=== PATIENT | female | born 2005 | race Caucasian/White ===

== ENCOUNTER 2023-05-14 15:26 | Emergency (ER) | payer BC, SELFPAY ==
[2023-05-14 15:32] VITALS: BP 103/63; PULSE 59; RESP 18; TEMP 36.4; O2SAT 100; BMI 18.1
--- NOTE | 2023-05-14 16:28 | ED_ITS ---
HPI - General Adult General Chief complaint: Chest Pain Stated complaint: chest pain Time Seen by Provider: 05/14/23 15:38 History of Present Illness HPI narrative: This 17-year-old female comes in from urgent care because of upper epigastric abdominal pain and some chest discomfort that began yesterday. 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 She did run yesterday and felt fine during that time. Later in the evening she began to have some discomfort in her upper abdomen. She states that this pain was worse when standing up straight. She found some relief when she was and stretching the muscles in this area. She slept well last night and then this morning again was having discomfort in her upper abdomen and also somewhat in her chest. This pain again was reproducible with palpating in this area and with certain movements. She does not report any nausea, vomiting, lightheadedness, shortness of breath, or diaphoresis. She states that her father has idiopathic hypertrophic cardiomyopathy but she has been tested for this and was negative for some kind of genetic connection to her father in this regard. Related Data Home Medications Medication Instructions Recorded Confirmed multivitamin with iron (Daily 1 tab PO QDAY 05/14/23 05/14/23 Multiple Vitamins with Iron tablet) Previous Rx's Medication Instructions Recorded ketorolac 10 mg tablet 10 mg PO Q8H 5 days #15 tabs 05/14/23 Allergies Allergy/AdvReac Type Severity Reaction Status Date / Time No Known Drug Allergies Allergy Verified 05/14/23 15:36 Review of Systems Status of ROS: Reports: 10 or more systems reviewed and unremarkable except as noted in History and below Narrative: Constitutional: No fevers, no weight gain or loss. Eyes: No discharge. No vision changes. HENT: No congestion, no sore throat, no ear pain. Cardiovascular: No chest pain, no palpitations. Respiratory: No shortness of breath, no wheezes, no cough. Gastrointestinal: No vomiting, no diarrhea. Upper abdominal pain. Genitourinary: No dysuria, no hematuria. Musculoskeletal: Normal range of motion. Skin: No rashes, no pruritis. Neurological: No dizziness, weakness, sensory change, speech change. Endo/Heme/Allergies: No bruising or bleeding. No polydipsia. Pysch: no suicidality, no anxiety, no insomnia. All other systems reviewed and are negative. PFSH PFSH Social History Smoking Status: Never smoker Do you use any of these nicotine containing products: None Second hand tobacco smoke exposure: No How often do you have a drink containing alcohol: never AUDIT-C Alcohol total score: 0 Non-prescribed substance use: denies use Exam Narrative: Exam Narrative: Constitutional: Well-developed, well-nourished, no acute distress. HEENT: Normocephalic, atraumatic. Neck: Normal range of motion. Nontender. Supple. Heart: Regular. No murmurs. Normal rate. Intact distal pulses. Lungs: Clear to auscultation. No chest discomfort. No wheezes, rhonchi, or rales. Abdomen: Normal bowel sounds. Mild tenderness in the upper epigastric region reproducible when palpating in this area. No rebound tenderness. Genitalia: Deferred. Back: No midline tenderness. Normal range of motion. Extremities: Normal range of motion. No injury. Skin: Intact. No rash. Warm. No erythema or pallor. Neurologic: No altered sensation. No weakness. Alert and oriented. Psychiatric: No suicidality. No anxiety or depression. No insomnia. Nursing notes and vitals signs are reviewed. Const: Vital Signs, click to edit/add: Vital Signs - 24 hr 05/14/23 15:32 Temperature 97.5 F L Pulse Rate [Pulse Oximeter] 59 L Respiratory Rate 18 Blood Pressure [Ri ght Upper Arm] 103/63 Pulse Oximetry 100 Oxygen Delivery Me thod Room Air Course Vital Signs Vital signs: Initial Vital Signs Temperature 97.5 F L 05/14/23 15:32 Temperature Source Temporal Artery Scan 05/14/23 15:32 Pulse Rate 59 L 05/14/23 15:32 Respiratory Rate 18 05/14/23 15:32 Blood Pressure 103/63 05/14/23 15:32 Blood Pressure Mean 76 05/14/23 15:32 Blood Pressure Position Sitting 05/14/23 15:32 Pulse Oximetry 100 05/14/23 15:32 Oxygen Delivery Method Room Air 05/14/23 15:32 Vital Signs Temperature 97.5 F L 05/14/23 15:32 Pulse Rate 59 L 05/14/23 15:32 Respiratory Rate 18 05/14/23 15:32 Blood Pressure 103/63 05/14/23 15:32 Pulse Oximetry 100 05/14/23 15:32 Oxygen Delivery Method Room Air 05/14/23 15:32 Temperature 97.5 F L 05/14/23 15:32 Pulse Rate 59 L 05/14/23 15:32 Respiratory Rate 18 05/14/23 15:32 Blood Pressure 103/63 05/14/23 15:32 Pulse Oximetry 100 05/14/23 15:32 Oxygen Delivery Method Room Air 05/14/23 15:32 Medical Decision Making MDM Narrative Medical decision making narrative: This patient comes in with upper epigastric and lower chest pain as described above. This pain is reproducible when palpating in these areas and when standing up and stretching her muscles in her upper abdomen she states that the pain is worse. 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 She is running lots of miles most every day. She has good exercise tolerance obviously. I did use bedside ultrasound and saw normal anatomy across the upper abdomen and normal findings looking also at her heart. This was reassuring enough for the patient. It seems that her symptoms are more musculoskeletal related as they are reproducible with palpating and with stretching these muscles. The patient is encouraged to use medicine such as Prilosec for possible benefit of acid reduction. I also provided a prescription for Toradol. Discharge Plan Discharge Clinical Impression: Anterior chest wall pain, Abdominal pain Patient Disposition: Home, Self-Care Condition: Stable Additional Instructions: Take Prilosec as needed and directed. Use Toradol also as needed and directed for pain relief. Activity as tolerated. Follow up with MD return if worsening. Prescriptions: New ketorolac 10 mg tablet 10 mg PO Q8H 5 Days Qty: 15 0RF No Action multivitamin with iron [Daily Multiple Vitamins/Iron] Tablet 1 tab PO QDAY Follow Up/Referrals: Provider,Not a Local [Primary Care Provider] - Stand Alone Forms: [employer] Info Instructions Procedures Ultrasound Biliary exam #1: Anatomical areas examined: gallbladder, long and short axis Indications: RUQ/epigastric pain Exam type: limited abdominal ultrasound; RUQ Impression: normal exam
== END 2023-05-14 16:54 | disposition home or self-care (01) ==
PROVIDERS: Emergency Provider Emergency Medicine Emergency Medical Services
DX: R07.89 Other chest pain (principal); R10.9 Unspecified abdominal pain
CPT/HCPCS: 76705; 99284

== ENCOUNTER 2024-02-17 23:38 | Emergency (ER) | payer BC, SELFPAY ==
[2024-02-17 23:45] VITALS: BP 103/68; PULSE 87; RESP 20; TEMP 36.8; O2SAT 99; BMI 18.8
--- NOTE | 2024-02-18 00:23 | ED_ITS ---
HPI - Nausea/Vomiting/Diarrhea General Date Seen: 02/18/24 Chief complaint: Nausea/Vomiting Stated complaint: vomiting, diarrhea Time Seen by Provider: 02/17/24 23:51 Source: patient, RN notes reviewed and old records reviewed Mode of arrival: ambulatory Limitations: no limitations History of Present Illness HPI Narrative: Patient is a 18-year-old female who presents here with 2 hours of vomiting, and loose stools. She has vomited approximately 6 times, not blood, and denies coffee-grounds. She has also had 2-3 loose stools during this time. Also no blood within them. No other contacts are sick. She feels weak. She did not take anything for this. Denies alcohol use. 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 And just return from [facility] a week ago. Denies previous problems the denies drug use. No history of previous abdominal surgeries her last normal menstrual period was last week and she denies being . Denies dysuria frequency of urine. Any back pain when asked if she has abdominal pain she says all over. Only medication she takes is iron supplements, she presents with a friend, goes to college here in [place]. elicited complaint: nausea Related Data Home Medications ?Medication ?Instructions ?Recorded ?Confirmed multivitamin with iron (Daily 1 tab PO QDAY 05/14/23 02/17/24 Multiple Vitamins with Iron tablet) Previous Rx's ?Medication ?Instructions ?Recorded ondansetron 4 mg disintegrating 4 mg PO BID-TID PRN nausea and 02/18/24 tablet vomiting 4 days #10 tabs Allergies Allergy/AdvReac Type Severity Reaction Status Date / Time No Known Drug Allergies Allergy Verified 02/17/24 23:52 Review of Systems Status of ROS: Reports: 10 or more systems reviewed and unremarkable except as noted in History and below [facility] Medical History Anemia ?D64.9 - Anemia, unspecified (ICD-10) Depression ?F32.A - Depression, unspecified (ICD-10) Anxiety ?F41.9 - Anxiety disorder, unspecified (ICD-10) Surgical History No significant past surgical history Social History Smoking Status: Never smoker Do you use any of these nicotine containing products: None Second hand tobacco smoke exposure: No How often do you have a drink containing alcohol: never AUDIT-C Alcohol total score: 0 Non-prescribed substance use: denies use Exam Narrative: Exam Narrative: On examination in room 5 she appears to be in no apparent distress, able to speak to me normally, her vital signs are normal, she appears nontoxic. Pupils equal round reactive to light there is no scleral icterus redness or TMs are normal oropharynx, shows no significant redness, hydration status maybe a little bit dry, there is no meningismus, follows commands normally, cranial nerves 3-12 are normal, chest is good air entry bilaterally with no wheezing crackles noted, easy respirations. Heart sounds are normal, no clicks murmurs or gallops her abdomen is scaphoid, she has tenderness on the right side. There is no peritoneal signs, no CVA tenderness is noted, skin reveals no petechiae rashes she moves all extremities independently and well. Const: Vital Signs, click to edit/add: Vital Signs - 24 hr 02/17/24 23:45 02/18/24 00:36 02/18/24 01:13 Temperature 98.2 F 98.2 F Pulse Rate [Right Pulse Oximeter] 87 Respiratory Rate 20 Blood Pressure [Ri ght Upper Arm] 103/68 Pulse Oximetry 99 99 Oxygen Delivery Me thod Room Air 02/18/24 01:16 02/18/24 02:14 02/18/24 02:16 Temperature 98.2 F 98.2 F 98.2 F Pulse Rate [Right Pulse Oximeter] 85 85 Respiratory Rate 20 20 Blood Pressure [Ri ght Upper Arm] 110/70 122/77 Pulse Oximetry 99 99 Oxygen Delivery Me thod Room Air Room Air 02/18/24 02:19 Temperature 98.2 F Pulse Rate [Right Pulse Oximeter] 85 Respiratory Rate 20 Blood Pressure [Ri ght Upper Arm] 122/77 Pulse Oximetry Oxygen Delivery Me thod Documenting provider has reviewed patient's vital signs: yes Course Course ED Course: Interestingly the friend who brought her here is now vomiting in the bathroom of the emergency room. Likelihood that this is either food-borne, or a infectious etiology is higher. Reevaluation(s) Time of Reevaluation #1: 01:10 Reevaluation #1: Patient reports that she is feeling a lot better at this point, asking for water, recheck of her abdomen shows she really does not have any tenderness at all on deep palpation, she is in agreement with this. We will give her 2 L of fluids I need to rule out a UTI here. She understands this. I think there is high likelihood that she can go home tonight if at all looks good. With some oral Zofran. Time of Reevaluation #2: 02:21 Reevaluation #2: Telma feels good, she has absolutely no abdominal pain, has not vomited. Received 2 L of fluids. I went over with her her lab results which showed the elevated hemoglobin elevated calcium and elevated protein levels I do recommend that she follows up within the next few weeks to get these recheck. To ensure there is nothing going on I suspect that they may be from just her dehydration. We went over the worsening situation when she should be re seen Vital Signs Vital signs: Initial Vital Signs Temperature 98.2 F 02/17/24 23:45 Temperature Source Temporal Artery Scan 02/17/24 23:45 Pulse Rate 87 02/17/24 23:45 Respiratory Rate 20 02/17/24 23:45 Blood Pressure 103/68 02/17/24 23:45 Blood Pressure Mean 79 02/17/24 23:45 Blood Pressure Position Sitting 02/17/24 23:45 Pulse Oximetry 99 02/17/24 23:45 Oxygen Delivery Method Room Air 02/17/24 23:45 Vital Signs Temperature 98.2 F 02/17/24 23:45 Pulse Rate 87 02/17/24 23:45 Respiratory Rate 20 02/17/24 23:45 Blood Pressure 103/68 02/17/24 23:45 Pulse Oximetry 99 02/17/24 23:45 Oxygen Delivery Method Room Air 02/17/24 23:45 Temperature 98.2 F 02/18/24 02:19 Pulse Rate 85 02/18/24 02:19 Respiratory Rate 20 02/18/24 02:19 Blood Pressure 122/77 02/18/24 02:19 Pulse Oximetry 99 02/18/24 02:16 Oxygen Delivery Method Room Air 02/18/24 02:16 Medications Administered Medications: Discontinued Medications Generic Name Dose Route Start Last Admin Trade Name Freq PRN Reason Stop Dose Admin Sodium Chloride 1,000 mls @ 1,000 mls/hr 02/18/24 00:15 02/18/24 01:15 0.9 % Sodium Chloride 1000 Ml IV 02/18/24 01:14 Infused .Q1H MARY KATE Infusion Sodium Chloride 1,000 mls @ 1,000 mls/hr 02/18/24 01:15 02/18/24 02:13 0.9 % Sodium Chloride 1000 Ml IV 02/18/24 02:14 Infused .Q1H MARY KATE Infusion Ketorolac Tromethamine 30 mg 02/18/24 00:28 02/18/24 01:13 Ketorolac 30 Mg/Ml Inj IVP 02/18/24 00:29 30 mg ONCE ONE Administration Ondansetron HCl 4 mg 02/18/24 00:12 02/18/24 00:27 Ondansetron 2 Mg/Ml Inj IVP 02/18/24 00:13 4 mg ONCE ONE Administration MDM - Nausea/Vomiting/Diarrhea MDM Narrative Medical decision making narrative: During the evaluation of this patient I considered multiple differential diagnosis including life-threatening differentials which are appendicitis, aortic aneurysm, mesenteric ischemia, bowel perforation, ectopic , volvulus and bowel obstruction, other differential diagnosis include but are not limited to inflammatory bowel disease, cholecystitis, pancreatitis, hepatitis, gastritis, GERD, diverticulitis, peptic ulcer disease, pyelonephritis/UTI, renal colic/stone, pelvic inflammatory disease, cervicitis, endometritis, intrauterine , dysfunctional uterine bleeding, ovarian cyst/torsion, spontaneous as well as other etiologies I discussed with her that we will try some fluids, some Zofran, he can use some pain medication also. I recommend laboratory tests, and likely a CT scan after the lab test Lab Data Labs: Lab Results 02/18/24 02/18/24 02/18/24 Range/Units 00:12 00:32 01:30 WBC 8.24 (4.50-11.00) K/uL RBC 5.77 H (4.00-5.20) m/uL Hgb 17.2 H (12.0-16.0) gm/dL Hct 52.6 H (33.0-51.0) % MCV 91 (80-100) fL MCH 30 (26-34) pg MCHC 33 (32-36) gm/dL RDW Coeff of Neftali 13.3 (11.5-15.5) % Plt Count 251 (140-440) K/uL Neut % (Auto) 90.9 H (42.0-72.0) % Lymph % (Auto) 5.1 L (20-44) % [place] % (Auto) 3.6 (0.0-11.0) % Eos % (Auto) 0.1 (0.0-7.0) % Baso % (Auto) 0.1 (0.0-3.0) % Neut # (Auto) 7.50 H (1.7-7.0) K/uL Lymph # (Auto) 0.40 L (0.90-2.90) K/uL [place] # (Auto) 0.30 (0.00-0.90) K/UL Eos # (Auto) 0.01 (0.00-0.50) K/uL Baso # (Auto) 0.01 (0.00-0.30) K/uL Abs Immat Gran (auto) 0.02 (0.00-0.30) K/uL Imm/Tot Granulo (auto) 0.2 % Sodium 141 (135-149) mmol/L Potassium 4.3 (3.6-5.1) mmol/L Chloride 105 (96-114) mmol/L Carbon Dioxide 19 L (20-32) mmol/L Anion Gap 17 H (7-15) mEq/L BUN 21 (5-24) mg/dL Creatinine 0.8 (0.5-1.5) mg/dL Estimated Creat Clear 108.44 Estimated GFR 108 ml/min Glucose 131 H (60-115) mg/dL Calcium 11.0 H (8.4-10.6) mg/dL Total Bilirubin 1.5 (0.1-1.5) mg/dL Direct Bilirubin 0.3 (0.0-0.5) mg/dL AST 36 H (12-35) U/L ALT 33 (4-35) U/L Alkaline Phosphatase 79 (40-150) U/L C-Reactive Protein < 0.5 L (0.5-1.0) mg/dL Total Protein 9.7 H (6.0-8.3) g/dL Albumin 5.8 H (3.3-5.0) g/dL Lipase 104 (23-300) U/L HCG, Qual Negative (Negative) Urine Color Yellow (Yellow) Urine Appearance Cloudy A (Clear) Urine pH 5.5 (5.0-8.5) Ur Specific [place] >= 1.030 (1.000-1.030) Urine Protein 1+ A (Negative) Urine Glucose (UA) Negative (Negative) Urine Ketones Trace A (Negative) Urine Blood Negative (Negative) Urine Nitrite Negative (Negative) Urine Bilirubin Negative (Negative) Urine Urobilinogen 0.2 (0.2-1.0) Ur Leukocyte Esterase Negative (Negative) Urine RBC 0-2 (0-2) Urine WBC 0-2 (0-5) Ur Squamous Epith Cells Moderate A (None-Few) Urine Bacteria Few A (None) Urine Opiates Screen Negative (Negative) Ur Oxycodone Screen Negative (Negative) Urine Methadone Screen Negative (Negative) Ur Barbiturates Screen Negative (Negative) U Tricyclic Antidepress Negative (Negative) Ur Phencyclidine Scrn Negative (Negative) Ur Amphetamines Screen Negative (Negative) U Methamphetamines Scrn Negative (Negative) U Benzodiazepines Scrn Negative (Negative) Urine Cocaine Screen Negative (Negative) U Marijuana (THC) Screen Negative (Negative) Ur Drug Screen Comment See Note Ethyl Alcohol < 0.01 L (0.01-0.03) % Lab Acknowledgement Test Added Discharge Plan Discharge Clinical Impression: Vomiting, Gastroenteritis, Diarrhea, Hypercalcemia, Elevated serum protein level, Elevated hemoglobin Patient Disposition: Home, Self-Care Condition: Improved Instructions: Acute Nausea and Vomiting (DC), Acute Diarrhea (ED), Acute Abdominal Pain (DC) Additional Instructions: Home, rest, use of Zofran anti nausea medicine as needed. I do recommend you follow-up with primary care your regular physician to get a recheck of your laboratory work copies will be given to you. , I suspect that some of this was due to the fact that your does dehydrated but she do have elevated protein levels elevated hemoglobin. Return here if your abdominal pain comes back, you start vomit out of control. Inability keep oral fluids down. I suspect given the fact her friend got sick that this is likely infectious in some way shape or form. Activity Level: Light activity Prescriptions: New ondansetron 4 mg tablet,disintegrating 4 mg PO BID-TID PRN (Reason: nausea and vomiting) 4 Days Qty: 10 0RF No Action multivitamin with iron [Daily Multiple Vitamins/Iron] Tablet 1 tab PO QDAY Follow Up/Referrals: Provider,Not a Local [Primary Care Provider] - Stand Alone Forms: [employer] Info Instructions
[2024-02-18 00:26] LABS: Basophils Absolute Auto 0.01 K/uL (0.00-0.30); Basophils Percent Auto 0.1 % (0.0-3.0); Eosinophils Absolute Auto 0.01 K/uL (0.00-0.50); Eosinophils Percent Auto 0.1 % (0.0-7.0); Hematocrit 52.6 % (33.0-51.0); Hemoglobin* 17.2 gm/dL (12.0-16.0); Immature Granulocytes Abs Auto 0.02 K/uL (0.00-0.30); Immature Granulocytes Pct Auto 0.2 %; Lymphocytes Percent Auto 5.1 % (20-44); Mean Corpuscular HGB Conc 33 gm/dL (32-36); Mean Corpuscular Hemoglobin 30 pg (26-34); Mean Corpuscular Volume 91 fL (80-100); Monocytes Percent Auto 3.6 % (0.0-11.0); Neutrophils Percent Auto 90.9 % (42.0-72.0); Platelet Count* 251 K/uL (140-440); RDW Coefficient of Variation % 13.3 % (11.5-15.5); Red Blood Count 5.77 m/uL (4.00-5.20); White Blood Count* 8.24 K/uL (4.50-11.00)
[2024-02-18] MEDS: 0.9 % SODIUM CHLORIDE 1000 ml 1,000 ML IV ×2 (00:27→01:11)
[2024-02-18] MEDS: ONDANSETRON 2 MG/ML inj 4 MG IVP (00:27)
[2024-02-18 00:30] LABS: Slide Review Reflex No
[2024-02-18 00:36] VITALS: O2SAT 99
[2024-02-18 00:49] LABS: HCG Qualitative Serum* Negative (Negative)
[2024-02-18 00:50] LABS: Albumin* 5.8 g/dL (3.3-5.0); Chloride* 105 mmol/L (96-114); Sodium* 141 mmol/L (135-149)
[2024-02-18 00:53] LABS: Anion Gap 17 mEq/L (7-15); Aspartate Amino Transferase* 36 U/L (12-35); Bilirubin Direct* 0.3 mg/dL (0.0-0.5); Bilirubin Total* 1.5 mg/dL (0.1-1.5); Carbon Dioxide* 19 mmol/L (20-32); Creatinine* 0.8 mg/dL (0.5-1.5); Est. Creatinine Clearance* 108.44; Estimated Glomerular Filt Rate 108 ml/min; Ethanol* < 0.01 % (0.01-0.03); Potassium* 4.3 mmol/L (3.6-5.1); Total Protein* 9.7 g/dL (6.0-8.3)
[2024-02-18 00:54] LABS: Alanine Aminotransferase* 33 U/L (4-35); Alkaline Phosphatase* 79 U/L (40-150); Blood Urea Nitrogen* 21 mg/dL (5-24); Glucose* 131 mg/dL (60-115); Lipase* 104 U/L (23-300)
[2024-02-18 01:03] LABS: C Reactive Protein* < 0.5 mg/dL (0.5-1.0)
[2024-02-18 01:13] VITALS: TEMP 36.8
[2024-02-18] MEDS: KETOROLAC 30 MG/ML inj IVP (01:13)
[2024-02-18 01:16] VITALS: BP 110/70; PULSE 85; RESP 20; TEMP 36.8; O2SAT 99
[2024-02-18 01:38] LABS: Appearance Urine Cloudy (Clear); Bilirubin Urine Negative (Negative); Blood Urine Negative (Negative); Color Urine Yellow (Yellow); Glucose Urine Negative (Negative); Ketones Urine Trace (Negative); Leukocyte Esterase Urine Negative (Negative); Nitrite Urine Negative (Negative); Protein Urine 1+ (Negative); Specific Gravity Urine >= 1.030 (1.000-1.030); Urobilinogen Urine 0.2 (0.2-1.0); pH Urine 5.5 (5.0-8.5)
[2024-02-18 01:46] LABS: Amphetamine Screen Urine Negative (Negative); Barbiturate Screen Urine Negative (Negative); Benzodiazepines Screen Urine Negative (Negative); Cannabinoid Screen Urine Negative (Negative); Cocaine Screen Urine Negative (Negative); Methadone Screen Urine Negative (Negative); Methamphetamines Screen Urine Negative (Negative); Opiate Screen Urine Negative (Negative); Oxycodone Screen Urine Negative (Negative); Phencyclidine Screen Urine Negative (Negative); Tricyclic Antidepressant Urine Negative (Negative)
[2024-02-18 01:57] LABS: Bacteria Urine Few; RBC Urine 0-2 (0-2); Squamous Epithelial Cell Urine Moderate (None-Few); WBC Urine 0-2 (0-5)
[2024-02-18 02:14] VITALS: TEMP 36.8
[2024-02-18 02:16] VITALS: BP 122/77; PULSE 85; RESP 20; TEMP 36.8; O2SAT 99
[2024-02-18 02:19] VITALS: BP 122/77; PULSE 85; RESP 20; TEMP 36.8
== END 2024-02-18 02:19 | disposition home or self-care (01) ==
PROVIDERS: Emergency Provider Family Medicine
DX: K52.9 Noninfective gastroenteritis and colitis, unspecified (principal); R77.9 Abnormality of plasma protein, unspecified; D58.2 Other hemoglobinopathies; E83.52 Hypercalcemia
CPT/HCPCS: 36415; 80048; 80076; 80306; 81001; 82077; 83690; 84703; 85025; 86140; 87086; 94761; 96374; 96375; 99284; J1885; J2405; J7030

== ENCOUNTER 2024-05-08 13:09 | Outpatient (CLI) | payer BC, SELFPAY ==
[2024-05-08 13:29] LABS: Hemoglobin* 12.8 gm/dL (12.0-16.0)
[2024-05-08 14:25] LABS: Ferritin* 13.7 ng/mL (6.24-137.0)
== END 2024-05-08 13:10 | disposition home or self-care (01) ==
PROVIDERS: Visit Provider Family Medicine
DX: R53.83 Other fatigue (principal)
CPT/HCPCS: 36415; 82728; 85018